=== PATIENT | female | born 1965 | race Caucasian/White ===

== ENCOUNTER → 2018-07-17 | Outpatient (CLI) | payer OTHER ==
[~2018-07-17] MED LIST: CYC10 PO; LEV500 PO; LOR5/325 PO; MED150I IM; METH4TAB57 PO
--- NOTE | 2018-07-28 10:08 | RADIOLOGY IMAGING REPORT ---
FACILITY: [facility] - [place] PATIENT NAME: ETHAN ESQUIVEL : [id number] MR: [id number] V: [id number] EXAM DATE: [id number] ORDERING PHYSICIAN: LAURA CORONA TECHNOLOGIST: Chelly Branham PROCEDURE:BILATERAL DIGITAL SCREENING MAMMOGRAM WITH CAD ASSISTED INTERPRETATION & 3D TOMOSYNTHESIS COMPARISON:Previous outside mammograms just now received 09/21/15, 12/24/12, 12/03/12, 02/08/10. INDICATIONS:screening FINDINGS: The breasts are heterogeneously dense which can obscure small masses. The parenchymal pattern has remained stable allowing for difference in mammographic technique & patient positioning. DIAGNOSTIC CATEGORY 1--NEGATIVE. RECOMMENDATIONS: ROUTINE MAMMOGRAM AND CLINICAL EVALUATION. IMPRESSION: BIRADS 1: Negative. No significant abnormality is seen. Dictated by: Penelope Huddleston M.D. on 07/24/2018 at 15:43 Transcribed by: KEESHA on 07/27/2018 at 11:16 Approved by: Penelope Huddleston M.D. on 07/28/2018 at 10:07 [facility]
== END ==
LOC: MAMO 02:14
PROVIDERS: ATTEND Obstetrics & Gynecology
DX: Z12.31 Encounter for screening mammogram for malignant neoplasm of breast (principal)
CPT/HCPCS: 77063; 77067